=== PATIENT | male | born 1975 | race Hispanic/Latino ===

== ENCOUNTER 2025-02-21 08:38 | Outpatient (RCR) | payer OTHER | END 2025-02-24 | LOC: OT 08:38 | PROVIDERS: ATTEND Family Medicine Obesity Medicine | DX: M65.30 Trigger finger, unspecified finger (principal) ==

== ENCOUNTER 2025-03-12 08:00 | Outpatient (RCR) | payer OTHER | END 2025-03-26 | LOC: OT 08:00 | PROVIDERS: ATTEND Family Medicine Obesity Medicine | DX: M65.30 Trigger finger, unspecified finger (principal) | CPT/HCPCS: 97535 ×2; L3906 ×2 ==